=== PATIENT | female | born 1995 | race African-American/Black ===

== ENCOUNTER 2021-06-06 21:40 | Emergency (ER) | payer OTHER ==
[~2021-06-06] VITALS: Ht 160 cm; Wt 74.0 kg
[2021-06-06] MEDS ORDERED: IBUPROFEN 800MG TABLET PO ONE (23:30)
[2021-06-07 01:42] LABS: CLARITY URINE CLOUDY (CLEAR); COLOR URINE YELLOW (YELLOW); KETONES URINE NEGATIVE (NEGATIVE); LEUKOCYTE ESTERASE URINE 2+ (NEGATIVE); NITRITE URINE NEGATIVE (NEGATIVE); OCCULT BLOOD URINE 2+ (NEGATIVE); PROTEIN URINE NEGATIVE (NEGATIVE); UROBILINOGEN URINE 0.2 E.U./dL (0.2-1.0)
[2021-06-07] MEDS ORDERED: CEPH500T MT (01:49)
[2021-06-07 02:02] VITALS: BP 130/71
[2021-06-10 04:07] LABS: NEISSERIA GONORRHOEAE NAA Negative (Negative)
== END 2021-06-07 02:03 | disposition home or self-care (01) ==
LOC: ER 21:40
DX: N39.0 Urinary tract infection, site not specified (principal)
CPT/HCPCS: 81003; 87491; 87591; 99283